=== PATIENT | male | born 1995 | race Caucasian/White ===

== ENCOUNTER 2019-08-18 15:09 | Emergency (ER) | payer BC ==
[2019-08-18] MEDS ORDERED: Albuterol/Ipratropium 3.0-0.5 MG/3 ML Neb Soln NEB ONE (15:29)
--- NOTE | 2019-08-18 15:32 | EDM.PDOC ---
ED HPI GENERAL MEDICAL PROBLEM - General Chief Complaint: General Stated Complaint: COUGH Time Seen by Provider: 08/18/19 15:11 Source of Information: Reports: Patient History Limitations: Reports: No Limitations - History of Present Illness INITIAL COMMENTS - FREE TEXT/NARRATIVE: HISTORY AND PHYSICAL: History of present illness: Patient is a 24-year-old male presents to the ED today for concern of cough 2- 3 weeks. Patient states initially his cough it started with nasal congestion and a sore throat but those symptoms have resolved and he only has the residual cough. He states he's taken [id number] cold symptoms with mild relief of symptoms. Patient states he does not smoke or use any other substances. Patient denies any health history or any other symptoms or concerns. Patient denies fever, chills, chest pain, shortness of breath. Denies headache, neck stiff ness, change in vision, syncope, or near syncope. Denies nausea, vomiting, abdominal pain, diarrhea, constipation, or dysuria. Has not noted any blood in urine or stool. Patient has been eating and drinking appropriately. Review of systems: As per history of present illness and below otherwise all systems reviewed and negative. Past medical history: As per history of present illness and as reviewed below otherwise noncontributory. Surgical history: As per history of present illness and as reviewed below otherwise noncontributory. Social history: See social history for further information Family history: As per history of present illness and as reviewed below otherwise noncontributory. Physical exam: General: Patient is alert, oriented, and in no acute distress. Patient sitting comfortably on exam table. HEENT: Atraumatic, normocephalic, pupils equal and reactive bilaterally, negative for conjunctival pallor or scleral icterus, mucous membranes moist, TMs normal bilaterally, throat clear, neck supple, nontender, trachea midline. No drooling or trismus noted. No meningeal signs. No hot potato voice noted. Lungs: Clear to auscultation, breath sounds equal bilaterally, chest nontender. Heart: S1S2, regular rate and rhythm without overt murmur Abdomen: Soft, nondistended, nontender. Negative for masses or hepatosplenomegaly. Negative for costovertebral tenderness. Pelvis: Stable nontender. Genitourinary: Deferred. Rectal: Deferred. Skin: Intact, warm, dry. No lesions or rashes noted. Extremities: Atraumatic, negative for cords or calf pain. Neurovascular unremarkable. Neuro: Awake, alert, oriented. Cranial nerves II through XII unremarkable. Cerebellum unremarkable. Motor and sensory unremarkable throughout. Exam nonfocal. Notes: Discussed the importance for follow-up with a primary care provider. Voices understanding and is agreeable to plan of care. Denies any further questions or concerns at this time. Diagnostics: CBC, CMP, CXR, influenza Therapeutics: Duoneb Prescription: Medrol dose pack, proair inhaler Impression: Tracheobronchitis Plan: 1. Take medication as prescribed. You can also use Tylenol and ibuprofen as directed for pain and discomfort. 2. Follow-up with her primary care provider as discussed. Return to the ED as needed and as discussed. Definitive disposition and diagnosis as appropriate pending reevaluation and review of above. - Related Data Allergies Allergy/AdvReac Type Severity Reaction Status Date / Time No Known Allergies Allergy Verified 08/18/19 15:21 Home Meds: Home Meds . [No Known Home Meds] 08/18/19 [History] Past Medical History - Past Health History Medical/Surgical History: Denies Medical/Surgical History - Infectious Disease History Infectious Disease History: Reports: Chicken Pox Social & Family History - Family History Family Medical History: Noncontributory - Tobacco Use Smoking Status *Q: Never Smoker - Recreational Drug Use Recreational Drug Use: No ED ROS GENERAL - Review of Systems Review Of Systems: ROS reveals no pertinent complaints other than HPI. ED EXAM, GENERAL - Physical Exam Exam: See Below (See dictation) Course - Vital Signs Last Recorded V/S: Last Vital Signs Temp 97.6 F 08/18/19 15:22 Pulse 101 H 08/18/19 15:22 Resp 18 08/18/19 15:22 BP 156/93 H 08/18/19 15:22 Pulse Ox 98 08/18/19 15:22 - Orders/Labs/Meds Orders: Active Orders 24 hr Category Date Time Status RT Aerosol Therapy [RC] ASDIRECTED Care 08/18/19 15:29 Active Labs: Laboratory Tests 08/18/19 Range/Units 16:31 WBC 8.65 (4.0-11.0) K/uL RBC 5.21 (4.50-5.90) M/uL Hgb 15.6 (13.0-17.0) g/dL Hct 44.3 (38.0-50.0) % MCV 85.0 (80.0-98.0) fL MCH 29.9 (27.0-32.0) pg MCHC 35.2 (31.0-37.0) g/dL RDW Std Deviation 40.1 (28.0-62.0) fl RDW Coeff of Pau 13 (11.0-15.0) % Plt Count 288 (150-400) K/uL MPV 9.50 (7.40-12.00) fL Neut % (Auto) 65.3 (48.0-80.0) % Lymph % (Auto) 23.8 (16.0-40.0) % [place] % (Auto) 8.8 (0.0-15.0) % Eos % (Auto) 1.8 (0.0-7.0) % Baso % (Auto) 0.3 (0.0-1.5) % Neut # (Auto) 5.6 (1.4-5.7) K/uL Lymph # (Auto) 2.1 (0.6-2.4) K/uL Montague # (Auto) 0.8 (0.0-0.8) K/uL Eos # (Auto) 0.2 (0.0-0.7) K/uL Baso # (Auto) 0.0 (0.0-0.1) K/uL Nucleated RBC % 0.0 /100WBC Nucleated RBCs # 0 K/uL Meds: Medications Discontinued Medications Generic Name Dose Route Start Last Admin Trade Name Freq PRN Reason Stop Dose Admin Albuterol/Ipratropium 3 ml 08/18/19 15:29 08/18/19 15:37 Duoneb 3.0-0.5 Mg/3 Ml NEB 08/18/19 15:30 3 ml ONETIME ONE Administration Departure - Departure Time of Disposition: 17:31 Disposition: Home, Self-Care 01 Clinical Impression: Tracheobronchitis - Discharge Information Referrals: PCP,Not In Area [Primary Care Provider] - Forms: ED Department Discharge Additional Instructions: The following information is given to patients seen in the emergency department who are being discharged to home. This information is to outline your options for follow-up care. We provide all patients seen in our emergency department with a follow-up referral. The need for follow-up, as well as the timing and circumstances, are variable depending upon the specifics of your emergency department visit. If you don't have a primary care physician on staff, we will provide you with a referral. We always advise you to contact your personal physician following an emergency department visit to inform them of the circumstance of the visit and for follow-up with them and/or the need for any referrals to a consulting specialist. The emergency department will also refer you to a specialist when appropriate. This referral assures that you have the opportunity for follow-up care with a specialist. All of these measure are taken in an effort to provide you with optimal care, which includes your follow-up. Under all circumstances we always encourage you to contact your private physician who remains a resource for coordinating your care. When calling for follow-up care, please make the office aware that this follow-up is from your recent emergency room visit. If for any reason you are refused follow-up, please contact the [facility] Emergency Department at and asked to speak to the emergency department charge nurse. [facility] [address] [place] [address] [id number] [address] 1. Take medication as prescribed. You can also use Tylenol and ibuprofen as directed for pain and discomfort. 2. Follow-up with your primary care provider as discussed. Return to the ED as needed and as discussed. - My Orders Last 24 Hours: My Active Orders 08/18/19 15:29 RT Aerosol Therapy [RC] ASDIRECTED - Assessment/Plan Last 24 Hours: My Active Orders 08/18/19 15:29 RT Aerosol Therapy [RC] ASDIRECTED
--- NOTE | 2019-08-18 16:11 | CR ---
Chest: Two views of the chest were obtained. Comparison: No prior chest x-ray. Heart size and mediastinum are normal. Lungs are clear. Bony structures are unremarkable. Impression: Nothing acute is seen on two-view chest x-ray. Diagnostic code #1 MTDD
== END 2019-08-18 17:40 | disposition home or self-care (01) ==
LOC: MW.ED 15:09
DX: J40 Bronchitis, not specified as acute or chronic (principal)
CPT/HCPCS: 36415; 71046; 71046-26; 85025; 87804; 94640; 99284-25; J7620-GY

== ENCOUNTER 2020-04-12 09:38 | Emergency (ER) | payer SELFPAY ==
--- NOTE | 2020-04-12 09:45 | EDM.PDOC ---
ED HPI GENERAL MEDICAL PROBLEM - General Chief Complaint: Chest Pain Stated Complaint: HEARTBURN/ CHEST PAIN Time Seen by Provider: 04/12/20 09:40 Source of Information: Reports: Patient History Limitations: Reports: No Limitations - History of Present Illness INITIAL COMMENTS - FREE TEXT/NARRATIVE: 24-year-old male with no past medical history presents with chest pain. Chest pain is localized to the left left side, is intermittent, mild, nonradiating, reproducible, intermittent, exacerbated with food, drinking, palpation. He describes it as a burning sensation. Denies smoking, drug use. He has no family history of coronary artery disease. He denies a history of HTN, DM, HLD, drug use. He does not see a PCP. ROS: A 10-point review of systems, other than pertinent positives and negatives as stated per HPI, is otherwise negative PHYSICAL EXAM General: AOx4, GCS = 15, No distress HEENT: dry mucous membrane Neck: supple, no meningismus, no Kernig or Brudzinski Cardiac: S1S2 RRR Chest wall: Left-sided chest wall tenderness to palpation. Respiratory: CTAB, no crackles or rales, no wheezing Abdomen: Soft, nontender, no rebound or guarding, nondistended, no pulsatile mass. Back: nontender Musculoskeletal: NVI distally, no deformity Neuro: No focal deficits, CN 2 - 12 WNL. chest pain Pain Score (Numeric/FACES): 2 - Related Data Allergies Allergy/AdvReac Type Severity Reaction Status Date / Time No Known Allergies Allergy Verified 04/12/20 09:44 Home Meds: Home Meds . [No Known Home Meds] 08/18/19 [History] Past Medical History - Past Health History Medical/Surgical History: Denies Medical/Surgical History - Infectious Disease History Infectious Disease History: Reports: Chicken Pox Social & Family History - Family History Family Medical History: Noncontributory ED ROS GENERAL - Review of Systems Review Of Systems: See Below (see dictation) ED EXAM, GENERAL - Physical Exam Exam: See Below (see dictation) EKG INTERPRETATION EKG Date: 04/12/20 EKG Interpretation Comments: 96 Bpm, NSR, normal QRS interval, no STEMI. No LVH, no prolonged QTC, no Brugada, no Wellens. EKG and rhythm strip interpreted by me at 0946 Course - Vital Signs Last Recorded V/S: Last Vital Signs Temp 95.6 F L 04/12/20 09:41 Pulse 95 04/12/20 11:31 Resp 16 04/12/20 10:32 BP 156/104 H 04/12/20 11:31 Pulse Ox 96 04/12/20 10:32 - Orders/Labs/Meds Orders: Active Orders 24 hr Category Date Time Status Cardiac Monitoring [RC] . DIRECTED Care 04/12/20 09:41 Active EKG Documentation Completion [RC] STAT Care 04/12/20 09:41 Active Metoprolol Succinate [Toprol XL] Med 04/12/20 11:30 Active 25 mg PO DAILY Medication Orders Metoprolol Succinate (Toprol Xl) 25 mg PO DAILY SEAN Last Admin: 04/12/20 11:31 Dose: 25 mg Documented by: TARA Labs: Laboratory Tests 04/12/20 04/12/20 Range/Units 11:29 11:29 WBC 8.81 (4.0-11.0) K/uL RBC 5.22 (4.50-5.90) M/uL Hgb 15.7 (13.0-17.0) g/dL Hct 44.7 (38.0-50.0) % MCV 85.6 (80.0-98.0) fL MCH 30.1 (27.0-32.0) pg MCHC 35.1 (31.0-37.0) g/dL RDW Std Deviation 40.7 (28.0-62.0) fl RDW Coeff of Pau 13 (11.0-15.0) % Plt Count 284 (150-400) K/uL MPV 9.20 (7.40-12.00) fL Neut % (Auto) 71.8 (48.0-80.0) % Lymph % (Auto) 20.4 (16.0-40.0) % Sherman % (Auto) 6.7 (0.0-15.0) % Eos % (Auto) 0.8 (0.0-7.0) % Baso % (Auto) 0.3 (0.0-1.5) % Neut # (Auto) 6.3 H (1.4-5.7) K/uL Lymph # (Auto) 1.8 (0.6-2.4) K/uL Sherman # (Auto) 0.6 (0.0-0.8) K/uL Eos # (Auto) 0.1 (0.0-0.7) K/uL Baso # (Auto) 0.0 (0.0-0.1) K/uL Nucleated RBC % 0.0 /100WBC Nucleated RBCs # 0 K/uL Sodium 140 (136-148) mmol/L Potassium 4.3 (3.5-5.1) mmol/L Chloride 102 (98-107) mmol/L Carbon Dioxide 30.1 (21.0-32.0) mmol/L BUN 11 (7.0-18.0) mg/dL Creatinine 0.9 (0.8-1.3) mg/dL Est Cr Clr Drug Dosing 141.80 mL/min Estimated GFR (MDRD) > 60.0 ml/min Glucose 99 (74-106) mg/dL Calcium 9.4 (8.5-10.1) mg/dL Total Bilirubin 0.6 (0.2-1.0) mg/dL AST 35 (15-37) IU/L ALT 80 H (14-63) IU/L Alkaline Phosphatase 144 H (46-116) U/L Troponin I < 0.050 (0.000-0.056) ng/mL Total Protein 7.9 (6.4-8.2) g/dL Albumin 3.9 (3.4-5.0) g/dL Globulin 4.0 (2.6-4.0) g/dL Albumin/Globulin Ratio 1.0 (0.9-1.6) Meds: Medications Generic Name Dose Route Start Last Admin Trade Name Freq PRN Reason Stop Dose Admin Metoprolol Succinate 25 mg 04/12/20 11:30 04/12/20 11:31 Toprol Xl PO 25 mg DAILY SEAN Administration Discontinued Medications Generic Name Dose Route Start Last Admin Trade Name Freq PRN Reason Stop Dose Admin Al Hydroxide/Mg Hydroxide 15 0 ml 04/12/20 10:25 04/12/20 10:31 ml/ Lidocaine HCl 5 ml PO 04/12/20 10:26 1 each ONETIME ONE Administration - Re-Assessments/Exams Free Text/Narrative Re-Assessment/Exam: 04/12/20 1310 After treatments and a prolonged observation period in the ER, the patient improved clinically and is stable for discharge. I performed a repeat examination and the patient has not demonstrated any new abnormal findings. Patient exhibits normal vital signs and has exhibited a normal gait. I advised the patient to return to the ER for reevaluation if symptoms worsened, and to follow up with their PCP within 2-3 days for BP management. MEDICAL DECISION MAKING: I reviewed the patients past medical records, lab and radiographic findings. I discussed the case with the patient. My differential diagnosis included but is not limited to: ACS, pneumonia, PE, pneumothorax, chest wall pain, pulmonary edema/CHF, aortic dissection, pericarditis, intra- abdominal process. His physical exam reveals chest wall tenderness to the left chest consistent with chest wall pain. Given the EKG and clinical history, I do not suspect pericarditis. There is no evidence of pneumothorax or infiltrate on CXR. Aortic dissection was considered, however the presenting symptoms were uncharacteristic of aortic dissection. Chest X-ray shows no evidence of mediastinal widening and there are strong, equal and symmetric pulses. Given the current presentation, I do not suspect aortic dissection. The patients history, chest X-ray, and exam do not suggest pulmonary edema/congestive heart failure. Pulmonary embolism was considered but felt unlikely as he was negative on PERC rule. All 8 of the rule out PERC criteria were present including: Age<50, HR <100, O2 sat > 94%, no recent trauma/surgery, no hemoptysis, no exogenous hormone use, no clinical signs suggestive of DVT, no hx DVT/PE. Given the above, there is a <2% risk of PE and I feel that no further diagnostic testing is needed. Intra-abdominal pathology felt unlikely given benign/non tender abdominal exam. Acute coronary syndrome was considered but there are negative biomarkers, no acute ischemic EKG changes, and the patient has a low HEART score. Based on this, I feel that there is low risk for short-term major adverse cardiac event. I have discussed this with the patient and reviewed options for inpatient and outpatient management. The patient verbalizes an excellent understanding of the above including presence of small risk of short-term major adverse cardiac event even in the setting of low HEART score, negative cardiac biomarker, and compendium of elements of this presentation. The patient wishes to pursue further workup on as an outpatient. Departure - Departure Time of Disposition: 13:11 Disposition: Home, Self-Care 01 Condition: Good Clinical Impression: Chest pain, Hypertension Instructions: Nonspecific Chest Pain, Adult, [id number], Hypertension, Adult Referrals: PCP,None [Primary Care Provider] - 1 Week Forms: ED Department Discharge Additional Instructions: The following information is given to patients seen in the emergency department who are being discharged to home. This information is to outline your options for follow-up care. We provide all patients seen in our emergency department wit h a follow-up referral. The need for follow-up, as well as the timing and circumstances, are variable depending upon the specifics of your emergency department visit. If you don't have a primary care physician on staff, we will provide you with a referral. We always advise you to contact your personal physician following an emergency department visit to inform them of the circumstance of the visit and for follow-up with them and/or the need for any referrals to a consulting specialist. The emergency department will also refer you to a specialist when appropriate. This referral assures that you have the opportunity for follow-up care with a specialist. All of these measure are taken in an effort to provide you with optimal care, which includes your follow-up. Under all circumstances we always encourage you to contact your private physician who remains a resource for coordinating your care. When calling for follow-up care, please make the office aware that this follow-up is from your recent emergency room visit. If for any reason you are refused follow-up, please contact the [facility] Emergency Department at and asked to speak to the emergency department charge nurse. If you do not have a primary care doctor, please follow up with the clinics below within 3-5 days. [facility] [address] [place] [address] [facility] [address] [place] [address] Sepsis Event Note (ED) - Focused Exam Vital Signs: Vital Signs Temp Pulse Pulse Resp BP BP Pulse Ox 04/12/20 11:31 95 156/104 H 04/12/20 10:32 101 H 16 178/106 H 96 04/12/20 09:41 95.6 F L 111 H 17 185/100 H 96 - My Orders Last 24 Hours: My Active Orders 04/12/20 09:41 Cardiac Monitoring [RC] . DIRECTED EKG Documentation Completion [RC] STAT 04/12/20 11:30 Metoprolol Succinate [Toprol XL] 25 mg PO DAILY - Assessment/Plan Last 24 Hours: My Active Orders 04/12/20 09:41 Cardiac Monitoring [RC] . DIRECTED EKG Documentation Completion [RC] STAT 04/12/20 11:30 Metoprolol Succinate [Toprol XL] 25 mg PO DAILY
--- NOTE | 2020-04-12 10:13 | CR ---
Chest: 2 views of the chest were obtained. Comparison: Prior chest x-ray of 08/18/19. Heart size and mediastinum are normal. Lungs are clear with no acute parenchymal change. Bony structures are unremarkable for the patient's age. Impression: 1. Nothing acute is appreciated on 2 view chest x-ray. Diagnostic code #1 This report was dictated in MDT
[2020-04-12] MEDS ORDERED: Alum Hydrox/Mag Hydrox/Simeth 15 ML, Lidocaine 2% 5 ML PO ONE ×2 (10:25)
[2020-04-12] MEDS ORDERED: Metoprolol Succinate 25 MG Tab.ER PO SCH (11:30)
[2020-04-12 11:58] LABS: BLOOD UREA NITROGEN,BUN 11 mg/dL (7.0-18.0); CARBON DIOXIDE,CO2 30.1 mmol/L (21.0-32.0); CHLORIDE,CL 102 mmol/L (98-107); GLUCOSE RANDOM 99 mg/dL (74-106); POTASSIUM,K 4.3 mmol/L (3.5-5.1); SODIUM,NA 140 mmol/L (136-148)
== END 2020-04-12 13:22 | disposition home or self-care (01) ==
LOC: MW.ED 09:38
DX: I10 Essential (primary) hypertension (principal)
CPT/HCPCS: 36415; 71046; 80053; 84484; 85025; 93005; 99285; A9270; 99283

== ENCOUNTER 2020-08-11 01:36 | Emergency (ER) | payer SELFPAY ==
[~2020-08-11 01:36] MED LIST: Acetaminophen 500 MG Tab PO ONE; Ibuprofen 600 MG Tab PO ONE; Ondansetron 4 MG Tab.DIS PO ONE
--- NOTE | 2020-08-11 02:18 | EDM.PDOC ---
ED HPI GENERAL MEDICAL PROBLEM - General Chief Complaint: General Stated Complaint: COVIT PT. 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 Patient reports he is likely positive for coronavirus as his entire family has been tested and is positive for coronavirus and he has had very close contact with them. He reports he has very similar symptoms to his family who have been positive for coronavirus. Patient reports that his brother was recently transferred for admission to the hospital secondary to his coronavirus and low oxygen level. Patient presents to the ER today for evaluation secondary to nausea vomiting shortness of breath and cough. Patient reports he has had 1-2 episodes of emesis. Patient reports he has been able to tolerate p.o.'s. Patient admits to tactile fevers, denies any diarrhea, denies any dysuria frequency urgency, complains of sore throat, complains of nonproductive cough but feels like he has a lot of phlegm settled in his chest. Patient does complain of some shortness of breath at home. Patient denies any lower extremity edema. Patient has any history of PE or DVT. Patient reports he has not been taking any ibuprofen or Tylenol at home to assist with fevers or chest pain. Patient has a history of diabetes, liver, lung, kidney problems. Patient reports he does have a history of hypertension but is not being treated for it at this time. Patient has any abdominal or chest surgeries in the past. Patient has no known drug allergies. Patient denies any tobacco alcohol or drugs. Review of systems: As per history of present illness and below otherwise all systems reviewed and negative. Past medical history: As per history of present illness and as reviewed below otherwise noncontributory. Surgical history: As per history of present illness and as reviewed below otherwise noncontributory. Social history: No reported history of drug or alcohol abuse. Family history: As per history of present illness and as reviewed below otherwise noncontributory. Physical exam: HEENT: Atraumatic, normocephalic, pupils reactive, negative for conjunctival pallor or scleral icterus, mucous membranes moist, throat clear, neck supple, nontender, trachea midline. Lungs: Clear to auscultation, breath sounds equal bilaterally, chest nontender. Heart: S1S2, regular, negative for clicks, rubs, or JVD. Abdomen: Soft, nondistended, nontender. Negative for masses or hepatosplenomegaly. Negative for costovertebral tenderness. Pelvis: Stable nontender. Genitourinary: Deferred. Rectal: Deferred. Extremities: Atraumatic, negative for cords or calf pain. Neurovascular unremarkable. Neuro: Awake, alert, oriented. Cranial nerves II through XII unremarkable. Cerebellum unremarkable. Motor and sensory unremarkable throughout. Exam nonfocal. Diagnostics: Chest x-ray: Pulse ox 96% on room air: Normal Therapeutics: Zofran 4 mg ODT Tylenol 1 g p.o. Ibuprofen 600 mg p.o. Assessment and plan: Is a 25-year-old gentleman who presents ER today with signs and symptoms consistent with coronavirus. Patient reports that he has not been tested for coronavirus but is pretty confident that his symptoms are consistent with infection. Patient is declining screening at this time as he is confident that his test will be positive since his family is all positive and he is having similar symptoms as they are. Patient reports he has been able to tolerate p.o. solids and liquids but he has had 1-2 episodes of emesis over the last 24 hours. Patient be given Zofran to this is more the symptoms. Patient currently does not present with an oxygen deficit. Patient's pulse ox is 96% on room air and he does not appear to be in any acute respiratory distress. Patient speaking in full sentences and resting comfortably. Patient will have a chest x-ray obtained. Patient has been given Zofran, Tylenol, ibuprofen to assist with treatment of his coronavirus symptoms. 1. Your COVID-19 screening is positive. That means you do have the coronavirus and you are considered contagious. Your vital signs and oxygen saturation are well enough that you were able to monitor your symptoms at home. Continue to monitor for trouble breathing, new confusion or inability to arouse, bluish lips or face or any of the other symptoms we discussed -if this occurs please return to the emergency room. 2. Please self quarantine over the next 10 days. Inform any persons that you have been in contact with since you started becoming symptomatic that you have tested positive; they should be made aware and take the appropriate steps as needed. 3. You can take NyQuil during the evening to help get a restful night sleep. May alternate Tylenol and ibuprofen as needed for pain and fever management. 4. The [facility] department will be calling you and following up with you. The [place] COVID 19 Hotline phone number , They are open Wednesday - Wednesday 7am - 7pm. Follow up with your primary care provider for re-evaluation and re-testing after the 10 day quarantine and discuss when you should be seen. Reassessment at the time of disposition demonstrates that the patient is in no acute distress. The patient has remained stable throughout the entire ED visit and is without objective evidence for acute process requiring urgent intervention or hospitalization. The patient is stable for discharge, counseling is provided as documented above, discussed symptomatic treatment and specific conditions for return. I have spoken with the patient/caregiver and discussed todays findings, in addition to providing specific details for the plan of care. Questions are answered and there is agreement with the plan. Definitive disposition and diagnosis as appropriate pending reevaluation and review of above. - Related Data Allergies Allergy/AdvReac Type Severity Reaction Status Date / Time No Known Allergies Allergy Verified 08/11/20 01:02 PATTERN SCRATCHER Home Meds: Home Meds Ibuprofen 600 mg PO Q6HR PRN #30 tablet 08/11/20 [Rx] Ondansetron [Zofran ODT] 4 mg PO Q6H PRN #12 tab.dis 08/11/20 [Rx] Past Medical History - Past Health History Medical/Surgical History: Denies Medical/Surgical History HEENT History: Reports: None Cardiovascular History: Reports: Hypertension Respiratory History: Reports: Bronchitis, Recurrent Gastrointestinal History: Reports: None Genitourinary History: Reports: None Musculoskeletal History: Reports: None Neurological History: Reports: None Psychiatric History: Reports: Other (See Below) Other Psychiatric History: Covid-19 Endocrine/Metabolic History: Reports: None Insulin Pump Model and Analysis Engineer: None Hematologic History: Reports: None Immunologic History: Reports: None Oncologic (Cancer) History: Reports: None Dermatologic History: Reports: None - Infectious Disease History Infectious Disease History: Reports: None - Past Surgical History Head Surgeries/Procedures: Reports: None Social & Family History - Family History Family Medical History: Noncontributory - Tobacco Use Tobacco Use Status *Q: Never Tobacco User - Caffeine Use Caffeine Use: Reports: Energy Drinks, Soda - Recreational Drug Use Recreational Drug Use: No ED ROS GENERAL - Review of Systems Review Of Systems: See Below ED EXAM, GENERAL - Physical Exam Exam: See Below Course - Vital Signs Last Recorded V/S: Last Vital Signs Temp 96.3 F L 08/11/20 01:02 PATTERN SCRATCHER Pulse 110 H 08/11/20 01:02 PATTERN SCRATCHER Resp 18 08/11/20 01:02 PATTERN SCRATCHER BP 151/104 H 08/11/20 01:02 PATTERN SCRATCHER Pulse Ox 94 L 08/11/20 01:02 PATTERN SCRATCHER - Orders/Labs/Meds Meds: Medications Discontinued Medications Generic Name Dose Route Start Last Admin Trade Name Freq PRN Reason Stop Dose Admin Acetaminophen 1,000 mg 08/11/20 01:04 PATTERN SCRATCHER 08/11/20 01:31 PATTERN SCRATCHER Tylenol Extra Strength PO 08/11/20 01:05 PATTERN SCRATCHER 1,000 mg ONETIME ONE Administration Ibuprofen 600 mg 08/11/20 01:04 PATTERN SCRATCHER 08/11/20 01:31 PATTERN SCRATCHER Motrin PO 08/11/20 01:05 PATTERN SCRATCHER 600 mg ONETIME ONE Administration Ondansetron HCl 4 mg 08/11/20 01:04 PATTERN SCRATCHER 08/11/20 01:31 PATTERN SCRATCHER Zofran Odt PO 08/11/20 01:05 PATTERN SCRATCHER 4 mg ONETIME ONE Administration Departure - Departure Time of Disposition: 02:02 Disposition: Home, Self-Care 01 Condition: Good Clinical Impression: 2019 novel coronavirus disease (COVID-19), Dyspnea, Cough, Nausea & vomiting, Hypertension - Discharge Information Prescriptions: Ibuprofen 600 mg PO Q6HR PRN #30 tablet PRN Reason: Pain Ondansetron [Zofran ODT] 4 mg PO Q6H PRN #12 tab.dis PRN Reason: Nausea Instructions: COVID-19 Frequently Asked Questions, COVID-19, Nausea and Vomiting, Adult, [id number], COVID-19: How to Protect Yourself and Others - CDC, Prevent the Spread of COVID-19 if You Are Sick - CDC, Managing Your Hypertension Referrals: PCP,None [Primary Care Provider] - Forms: ED Department Discharge Additional Instructions: You have been seen and evaluated in the ER today secondary to likely coronavirus infection. At this time, you do not meet criteria for inpatient level of care since your oxygen level is within normal limits and your chest x-ray is not showing any significant abnormalities. You have been given a prescription for ibuprofen and Zofran to assist with your symptoms. 1. Your COVID-19 screening is positive. That means you do have the coronavirus and you are considered contagious. Your vital signs and oxygen saturation are well enough that you were able to monitor your symptoms at home. Continue to monitor for trouble breathing, new confusion or inability to arouse, bluish lips or face or any of the other symptoms we discussed -if this occurs please return to the emergency room. 2. Please self quarantine over the next 10 days. Inform any persons that you have been in contact with since you started becoming symptomatic that you have tested positive; they should be made aware and take the appropriate steps as needed. 3. You can take NyQuil during the evening to help get a restful night sleep. May alternate Tylenol and ibuprofen as needed for pain and fever management. 4. The [facility] department will be calling you and following up with you. The [place] COVID 19 Hotline phone number , They are open Wednesday - Wednesday 7am - 7pm. Follow up with your primary care provider for re-evaluation and re-testing after the 10 day quarantine and discuss when you should be seen. The following information is given to patients seen in the emergency department who are being discharged to home. This information is to outline your options for follow-up care. We provide all patients seen in our emergency department with a follow-up referral. The need for follow-up, as well as the timing and circumstances, are variable depending upon the specifics of your emergency department visit. If you don't have a primary care physician on staff, we will provide you with a referral. We always advise you to contact your personal physician following an emergency department visit to inform them of the circumstance of the visit and for follow-up with them and/or the need for any referrals to a consulting specialist. The emergency department will also refer you to a specialist when appropriate. This referral assures that you have the opportunity for follow-up care with a specialist. All of these measure are taken in an effort to provide you with optimal care, which includes your follow-up. Under all circumstances we always encourage you to contact your private physician who remains a resource for coordinating your care. When calling for follow-up care, please make the office aware that this follow-up is from your recent emergency room visit. If for any reason you are refused follow-up, please contact the [facility] Emergency Department at and asked to speak to the emergency department charge nurse. Sepsis Event Note (ED) - Evaluation Sepsis Screening Result: No Definite Risk - Focused Exam Vital Signs: Vital Signs Temp Pulse Resp BP Pulse Ox 08/11/20 01:02 PATTERN SCRATCHER 96.3 F L 110 H 18 151/104 H 94 L
--- NOTE | 2020-08-11 02:58 | CR ---
INDICATION: Shortness of breath, COVID-19 TECHNIQUE: Chest radiograph 1 view on 2 films COMPARISON: None FINDINGS: Mediastinum: The mediastinum is normal in appearance. The heart silhouette is normal in size and morphology. Lung: Both lungs are unremarkable in appearance. No sign of pleural effusion seen. No pneumothorax is identified. Bone and Soft tissue: Unremarkable for age. IMPRESSION: 1. No acute cardiopulmonary disease is seen. Dictated by Karl Snow MD @ 08/11/2020 1:55:45 AM Dictated by: Karl Snow MD @ 08/11/2020 01:55:48 (Electronically Signed)
== END 2020-08-11 02:15 | disposition home or self-care (01) ==
LOC: MW.ED 01:36
DX: U07.1 COVID-19 (principal); I10 Essential (primary) hypertension
CPT/HCPCS: 71045; 99284; A9270; 99283

== ENCOUNTER 2023-12-25 12:20 | Emergency (ER) | payer SELFPAY ==
[2023-12-25] MEDS: Benzocaine 20% Topical Spray UD MUCMEM ONE (12:52)
[2023-12-25] MEDS: Lidocaine 2% Viscous Solution 15 ML UD PO ONE (12:52)
== END 2023-12-25 12:57 | disposition home or self-care (01) ==
LOC: MW.ED 12:20
DX: K04.7 Periapical abscess without sinus (principal); I10 Essential (primary) hypertension; Z86.16 Personal history of COVID-19
CPT/HCPCS: 99282; A9270; 99283